=== PATIENT | female | born 1990 | race Hispanic/Latino ===

== ENCOUNTER 2021-12-12 12:38 | Emergency (ER) | payer MEDICAID, SELFPAY ==
--- NOTE | ~2021-12-12 | US_ITS ---
EXAMINATION: US OB <=14 wk fetus w TV DATE: 12/12/2021 15:57 INDICATION: Vaginal bleeding during first trimester TECHNIQUE: Real-time pelvic transabdominal and transvaginal ultrasound was performed. COMPARISON: None. FINDINGS: The uterus measures 9.0 x 4.6 x 6.3 cm. The endometrial thickness measures 8 mm. No intrau terine gestational sac is identified. The right ovary measures 2.3 x 1.5 x 1.5 cm. The left ovary chelsey sures 3.1 x 1.5 x 1.6 cm. There is normal vascular flow in the ovaries. There is no free fluid in the pelvis. IMPRESSION: 1. of unknown location. Although no intrauterine gestational sac is seen, this may be due t o early gestation. If the patient is clinically stable, recommend followup with serial beta-hCG and u ltrasound. Reviewed, dictated and finalized at location B. IMPRESSION: 1. of unknown location. Although no intrauterine gestational sac is s een, this may be due to early gestation. If the patient is clinically stable, r ecommend followup with serial beta-hCG and ultrasound.
[2021-12-12 12:40] VITALS: BP 137/68; PULSE 74; RESP 20; TEMP 36.1; O2SAT 100
[2021-12-12 13:27] LABS: Basophils Percent Auto 0.5 % (0.2-1.2); Eosinophils Absolute Auto 0.2 K/mm3 (0-0.3); Eosinophils Percent Auto 2.1 % (0-4.4); Hematocrit 33.3 % (37.0-47.0); Immature Granulocyte Absolute 0.02 K/mm3 (0.00-0.031); Immature Granulocyte Percent A 0.3 % (0-0.5); Lymphocytes Absolute Auto 2.29 K/mm3 (0.9-3.2); Lymphocytes Percent Auto 30.1 % (18.3-44.2); Mean Corpuscular Volume 87.9 fl (80-100); Mean Platelet Volume 10.5 fl (7.4-10.4); Monocytes Absolute Auto 0.4 K/mm3 (0.1-0.6); Monocytes Percent Auto 4.9 % (2.6-8.5); Neutrophils Absolute Auto 4.7 K/mm3 (1.3-6.7); Neutrophils Percent Auto 62.1 % (45.5-73.1); Platelet Count Result 205 k/mm3 (150-375); Red Blood Count 3.79 M/mm3 (4.2-5.4); Red Cell Distribution Width 13.6 % (11.5-14.5); White Blood Count 7.6 K/mm3 (4.5-10.0)
[2021-12-12 13:47] LABS: Beta HCG Quantitative 53.44 mIU/ML
--- NOTE | 2021-12-12 14:59 | ED.GENADULT ---
HPI - General Adult General Chief complaint: Vaginal Bleeding Stated complaint: bleeding after positive HCG Time Seen by Provider: 12/12/21 14:40 History of Present Illness HPI narrative: 31-year-old female presenting to the emergency department for evaluation of vaginal bleeding. Patient states she stopped her control approximately 6 months ago and she was attempting to get . Patient states 2 days ago she was having some nausea in the morning ended up at home test that was positive. Patient suspects that she may be approximately 4 weeks . Patient states today she started having some vaginal bleeding. Patient states it is not heavy vaginal bleeding. Patient did have some abdominal cramping last night but denies any current abdominal cramping. Patient has not yet had OB follow-up for this . Related Data Allergies Allergy/AdvReac Type Severity Reaction Status Date / Time No Known Allergies Allergy Verified 12/12/21 14:45 Review of Systems Review of Systems: CONSTITUTIONAL: Denies fever, chills, or sweats. EYES: Denies visual changes, redness, or discharge. ENT: Denies rhinorrhea, congestion, sore throat, or otalgia. CARDIOVASCULAR: Denies chest pain, palpitations, or edema. RESPIRATORY: Denies cough or dyspnea. GASTROINTESTINAL: Denies abdominal pain, nausea, vomiting, or diarrhea. GENITOURINARY: Vaginal bleeding, see HPI SKIN: Denies rash or itching. MUSCULOSKELETAL: Denies back pain, joint pain, or myalgia. NEUROLOGIC: Denies headache, numbness, or weakness. Exam Narrative: APPEARANCE: Well appearing, no pain, no distress, well-nourished. HEAD: normocephalic, atraumatic. EYES: PERRLA/EOMI, conjunctivae clear. NOSE: Normal no drainage NECK: Supple. No adenopathy, no masses. RESPIRATORY: Airway patent, respirations nonlabored. Clear to auscultation bilaterally, no rales, rhonchi, wheezing. CARDIOVASCULAR: Regular rate and rhythm without murmurs rubs or gallops. ABDOMINAL: Soft, nontender, nondistended, normal bowel sounds. Friable cervix with no vaginal bleeding MUSCULOSKELETAL: Moves all extremities. Strength/ROM intact, No edema, No calf tenderness. NEURO: Alert. Cranial nerves II through XII intact. Grossly intact SKIN: Warm, dry. Normal Color Course Course Emergency Course: Patient was updated the results of her beta hCG 53.4. Patient's trichomonas was negative. Additional vaginal swabs are pending. Patient's blood type was O+. No RhoGAM was given. Pelvic ultrasound showed no evidence of IUP or ectopic. Patient was updated on the importance having close follow-up with her [employer]. Vital Signs Vital signs: Vital Signs Temperature 97.0 F L 12/12/21 12:40 Pulse Rate 74 12/12/21 12:40 Respiratory Rate 20 12/12/21 12:40 Blood Pressure 137/68 12/12/21 12:40 Pulse Oximetry 100 12/12/21 12:40 Oxygen Delivery Room Air 12/12/21 12:40 Temperature 97.0 F L 12/12/21 12:40 Pulse Rate 72 12/12/21 18:02 Respiratory Rate 16 12/12/21 18:02 Blood Pressure 128/64 12/12/21 18:02 Pulse Oximetry 100 12/12/21 18:02 Oxygen Delivery Room Air 12/12/21 12:40 Medical Decision Making Vital Signs Vital Signs: Vital Signs Temperature 97.0 F L 12/12/21 12:40 Pulse Rate 74 12/12/21 12:40 Respiratory Rate 20 12/12/21 12:40 Blood Pressure 137/68 12/12/21 12:40 Pulse Oximetry 100 12/12/21 12:40 Oxygen Delivery Room Air 12/12/21 12:40 Temperature 97.0 F L 12/12/21 12:40 Pulse Rate 72 12/12/21 18:02 Respiratory Rate 16 12/12/21 18:02 Blood Pressure 128/64 12/12/21 18:02 Pulse Oximetry 100 12/12/21 18:02 Oxygen Delivery Room Air 12/12/21 12:40 Lab Data Lab results reviewed: Yes I reviewed the patient's lab results. Result diagrams: 12/12/21 13:12 Labs: Lab Results 12/12/21 12/12/21 12/12/21 Range/Units 13:12 13:12 13:12 WBC 7.6 (4.5-10.0) K/mm3 RBC 3.79 L (4.2-5.4) M/mm3
[2021-12-12 18:02] VITALS: BP 128/64; PULSE 72; RESP 16; O2SAT 100
== END 2021-12-12 18:03 | disposition home or self-care (01) ==
PROVIDERS: Emergency Provider Emergency Medicine
DX: O20.9 Hemorrhage in early pregnancy, unspecified (principal); Z3A.00 Weeks of gestation of pregnancy not specified
CPT/HCPCS: 36415; 76801; 76817; 84702; 85025; 85461; 87070; 87491; 87591; 87808; 99284

== ENCOUNTER 2023-07-02 09:05 | Emergency (ER) | payer OTHER, SELFPAY ==
--- NOTE | ~2023-07-02 | XR_ITS ---
EXAMINATION: XR foot LT min 3V DATE: 07/02/2023 09:28 INDICATION: Left foot injury and pain. TECHNIQUE: 4 views of left foot were obtained. COMPARISON: None. FINDINGS: Bone alignment is normal. No fracture. There is mild osteoarthritis of first metatarsophala ngeal joint and talonavicular joint. There is an enthesophyte at posterior aspect of calcaneal tubero sity. IMPRESSION: 1. Mild polyarticular osteoarthritis. Reviewed, dictated and finalized at location A.
[2023-07-02 09:14] VITALS: BP 150/81; PULSE 74; RESP 16; TEMP 36.3; O2SAT 100
--- NOTE | 2023-07-02 09:51 | ED.EXTPRO ---
HPI - Extremity Problem General Chief complaint: Extremity Problem,Nontraumatic Stated complaint: Left Foot Toe Pain Time Seen by Provider: 07/02/23 09:20 Source: patient and RN notes reviewed Mode of arrival: ambulatory Limitations: no limitations History of Present Illness HPI Narrative: 33-year-old female presents concern for pain to the 2nd digit of the left foot for 1 month. Reports he injured it 1 month ago. Reports painful foot she is on. She reports tingling in the digit. She denies intervention with vxob-eyy-hyutwou medications, ice. MD Complaint: extremity pain Related Data Allergies Allergy/AdvReac Type Severity Reaction Status Date / Time No Known Allergies Allergy Verified 07/02/23 09:08 Review of Systems Review of Systems: CONSTITUTIONAL: Denies malaise, chills, sweats, or fever. SKIN: Denies rash or itching, open skin, laceration, abrasion, redness, warmth, swelling. MUSCULOSKELETAL: Reports pain to the 2nd digit of the left foot NEUROLOGIC: Denies numbness, weakness All systems reviewed & are unremarkable except as noted in HPI and below PMFSH Comments At time of signature, agree with nursing past medical, surgical, social and family history. There is no relevant family history pertinent to the presenting complaint Exam Narrative: GENERAL: Well-appearing, well-nourished, and in no acute distress. HEAD: Normocephalic, atraumatic. EYES: PERRLA, conjunctivae clear NECK: Supple. CHEST: Speaks in full sentences. No respiratory distress. HEART: Regular rate and rhythm. Normal and equal peripheral pulses. EXTREMITIES: Left foot, digits have grossly normal strength and sensation, normal range of motion. No edema or ecchymosis. 5/5 strength with digit flexion and extension. Normal sensation with sensitivity to light touch and pain. General digit tenderness. No open wounds, no skin tenting, no devitalized tissue or atrophy, no trophic changes, no obvious deformity, alignment normal, nearby joints and structures intact. Distal pulses palpable and equal bilaterally, skin warm, dry, pink. Capillary refill less than 3 seconds. SKIN: Warm, dry, no rash. NEURO: Alert and oriented x3. PSYCH: Normal mood and affect Course Course Emergency Course: Patient is aware of diagnosis, understands and agrees to treatment plan. Anticipatory guidance given. Patient agrees to follow-up as directed and is aware of reasons to seek care at the emergency department. Portions of this record may have been created with voice recognition software Level of Care: Express Care Visit Vital Signs Vital signs: Vital Signs Temperature 97.4 F L 07/02/23 09:14 Pulse Rate 74 07/02/23 09:14 Respiratory Rate 16 07/02/23 09:14 Blood Pressure 150/81 H 07/02/23 09:14 Pulse Oximetry 100 07/02/23 09:14 Oxygen Delivery Room Air 07/02/23 09:14 Temperature 97.4 F L 07/02/23 09:14 Pulse Rate 74 07/02/23 09:14 Respiratory Rate 16 07/02/23 09:14 Blood Pressure 150/81 H 07/02/23 09:14 Pulse Oximetry 100 07/02/23 09:14 Oxygen Delivery Room Air 07/02/23 09:14 Reviewed. Critical Care Time Critical Care Time Critical Care Time: No Discharge Plan Discharge Clinical Impression: Pain in toe of left foot Patient Disposition: Home, Self-Care Condition: Stable Instructions: Foot Sprain (ED) Additional Instructions: Avoid activities that cause pain until the pain subsides. Ice to the area 20-30 minutes 4-6 times a day Elevate above heart [place]-tape as directed for comfort for the next 5-7 days Tylenol for lesser pain Ibuprofen regularly for the next 2-3 days for the inflammation Follow up with your primary care provider if the condition is not improving within 1 week. If the condition worsens with numbness, tingling, decrease sensation with weakness seek treatment in the emergency room immediately. Prescriptions: New ibuprofen 800 mg tablet 800 mg PO Q6H PRN (Reason: emir
== END 2023-07-02 10:00 | disposition home or self-care (01) ==
PROVIDERS: Emergency Provider Nurse Practitioner
DX: M79.675 Pain in left toe(s) (principal)
CPT/HCPCS: 73630; 99213; G0463

== ENCOUNTER 2025-02-12 11:32 | Outpatient (CLI) | payer OTHER, SELFPAY ==
--- NOTE | ~2025-02-12 | US_ITS ---
EXAM(S)/PROCEDURE(S): Ultrasound OB transvaginal HISTORY: For dating COMPARISON: None TECHNIQUE: Grayscale GENERAL: Number of embryos: 1 Heart rate: 122 bpm. Cloverleaf-Rump Length (mean): 0.6 cm, consistent with an estimated gestational age of 6 weeks 2 days. Yolk Sac: Present. DEMARIO: October 06, 2025 There are nabothian cysts in the cervix. MATERNAL PELVIS Right ovary: There is a 2.4 cm cyst in the right ovary, which may represent corpus luteum cyst. This may represent the corpus luteum cyst. Left ovary: Normal. Cul-de-sac: No free fluid. IMPRESSION: Single live intrauterine gestation with estimated gestational age as described. Reviewed, dictated and finalized at location A. [employer]
== END 2025-02-12 11:33 | disposition home or self-care (01) ==
LOC: MICIMG 11:33
DX: Z36.87 Encounter for antenatal screening for uncertain dates (principal)
CPT/HCPCS: 76817